=== PATIENT | male | born 1940 | race Caucasian/White ===

== ENCOUNTER → 2017-09-12 | Outpatient (CLI) | payer MEDICARE ==
[2017-09-12 13:59] VITALS: BP 133/54
== END | disposition home or self-care (01) ==
LOC: WHH 11:00
PROVIDERS: ATTEND Podiatrist Foot & Ankle Surgery
DX: I83.023 Varicose veins of left lower extremity with ulcer of ankle (principal); L97.321 Non-pressure chronic ulcer of left ankle limited to breakdown of skin; G62.9 Polyneuropathy, unspecified; M15.9 Polyosteoarthritis, unspecified; M06.9 Rheumatoid arthritis, unspecified; E66.01 Morbid (severe) obesity due to excess calories; Z68.1 Body mass index [BMI] 19.9 or less, adult
CPT/HCPCS: A4450; A4649; G0463

== ENCOUNTER → 2017-09-26 | Outpatient (CLI) | payer MEDICARE ==
[2017-09-27 13:19] VITALS: BP 131/58
== END | disposition home or self-care (01) ==
LOC: WHH 11:05
PROVIDERS: ATTEND Podiatrist Foot & Ankle Surgery
DX: I83.023 Varicose veins of left lower extremity with ulcer of ankle (principal); L97.321 Non-pressure chronic ulcer of left ankle limited to breakdown of skin; G62.9 Polyneuropathy, unspecified; M15.9 Polyosteoarthritis, unspecified; M06.9 Rheumatoid arthritis, unspecified; E66.01 Morbid (severe) obesity due to excess calories; Z68.1 Body mass index [BMI] 19.9 or less, adult
CPT/HCPCS: 11042; A6209

== ENCOUNTER → 2017-10-10 | Outpatient (CLI) | payer MEDICARE ==
[2017-10-10 15:22] VITALS: BP 136/54
== END | disposition home or self-care (01) ==
LOC: WHH 11:00
PROVIDERS: ATTEND Podiatrist Foot & Ankle Surgery
DX: I83.023 Varicose veins of left lower extremity with ulcer of ankle (principal); L97.321 Non-pressure chronic ulcer of left ankle limited to breakdown of skin; I83.015 Varicose veins of right lower extremity with ulcer other part of foot; L97.511 Non-pressure chronic ulcer of other part of right foot limited to breakdown of skin; G62.9 Polyneuropathy, unspecified; M15.9 Polyosteoarthritis, unspecified; M06.9 Rheumatoid arthritis, unspecified; E66.01 Morbid (severe) obesity due to excess calories; Z68.1 Body mass index [BMI] 19.9 or less, adult
CPT/HCPCS: 11042; A6209; A6213

== ENCOUNTER → 2017-10-24 | Outpatient (CLI) | payer MEDICARE ==
[2017-10-24 14:04] VITALS: BP 119/47
== END | disposition home or self-care (01) ==
LOC: WHH 10:55
PROVIDERS: ATTEND Podiatrist Foot & Ankle Surgery
DX: I83.023 Varicose veins of left lower extremity with ulcer of ankle (principal); L97.321 Non-pressure chronic ulcer of left ankle limited to breakdown of skin; I83.015 Varicose veins of right lower extremity with ulcer other part of foot; L97.511 Non-pressure chronic ulcer of other part of right foot limited to breakdown of skin; G62.9 Polyneuropathy, unspecified; M15.9 Polyosteoarthritis, unspecified; M06.9 Rheumatoid arthritis, unspecified; E66.01 Morbid (severe) obesity due to excess calories; Z68.1 Body mass index [BMI] 19.9 or less, adult
CPT/HCPCS: A6209; A6213; G0463

== ENCOUNTER → 2017-11-07 | Outpatient (CLI) | payer MEDICARE ==
[~2017-11-07] MED LIST: LIDOCAINE/PRILOCAINE CREAM 5GM TUBE TP ONE
[2017-11-07 12:50] VITALS: BP 158/89
== END | disposition home or self-care (01) ==
LOC: WHH 10:45
PROVIDERS: ATTEND Podiatrist Foot & Ankle Surgery
DX: I83.023 Varicose veins of left lower extremity with ulcer of ankle (principal); L97.321 Non-pressure chronic ulcer of left ankle limited to breakdown of skin; I83.015 Varicose veins of right lower extremity with ulcer other part of foot; L97.511 Non-pressure chronic ulcer of other part of right foot limited to breakdown of skin; G62.9 Polyneuropathy, unspecified; M15.9 Polyosteoarthritis, unspecified; M06.9 Rheumatoid arthritis, unspecified; E66.01 Morbid (severe) obesity due to excess calories; Z68.1 Body mass index [BMI] 19.9 or less, adult
CPT/HCPCS: 11042; A4450; A6209; J3490

== ENCOUNTER → 2017-11-12 | Outpatient (CLI) | payer MEDICARE | END | disposition home or self-care (01) | LOC: SHCH 12:27 | PROVIDERS: ATTEND Internal Medicine Cardiovascular Disease | DX: I65.23 Occlusion and stenosis of bilateral carotid arteries (principal); I87.2 Venous insufficiency (chronic) (peripheral); I10 Essential (primary) hypertension; I35.0 Nonrheumatic aortic (valve) stenosis; R60.9 Edema, unspecified | CPT/HCPCS: 93306; 93880 ==

== ENCOUNTER → 2017-11-21 | Outpatient (CLI) | payer MEDICARE ==
[2017-11-21 14:41] VITALS: BP 163/68
== END | disposition home or self-care (01) ==
LOC: WHH 11:00
PROVIDERS: ATTEND Podiatrist Foot & Ankle Surgery
DX: I83.023 Varicose veins of left lower extremity with ulcer of ankle (principal); L97.321 Non-pressure chronic ulcer of left ankle limited to breakdown of skin; I83.015 Varicose veins of right lower extremity with ulcer other part of foot; L97.511 Non-pressure chronic ulcer of other part of right foot limited to breakdown of skin; L89.899 Pressure ulcer of other site, unspecified stage; L89.529 Pressure ulcer of left ankle, unspecified stage; I10 Essential (primary) hypertension; E66.01 Morbid (severe) obesity due to excess calories; G62.9 Polyneuropathy, unspecified; M15.9 Polyosteoarthritis, unspecified; M06.9 Rheumatoid arthritis, unspecified; I73.9 Peripheral vascular disease, unspecified; Z68.1 Body mass index [BMI] 19.9 or less, adult
CPT/HCPCS: 11042; A4649; J3490

== ENCOUNTER → 2017-12-05 | Outpatient (CLI) | payer MEDICARE ==
[2017-12-05 14:22] VITALS: BP 131/55
== END | disposition home or self-care (01) ==
LOC: WHH 10:50
PROVIDERS: ATTEND Podiatrist Foot & Ankle Surgery
DX: I83.023 Varicose veins of left lower extremity with ulcer of ankle (principal); L97.321 Non-pressure chronic ulcer of left ankle limited to breakdown of skin; I83.015 Varicose veins of right lower extremity with ulcer other part of foot; L97.511 Non-pressure chronic ulcer of other part of right foot limited to breakdown of skin; L89.899 Pressure ulcer of other site, unspecified stage; L89.529 Pressure ulcer of left ankle, unspecified stage; I10 Essential (primary) hypertension; E66.01 Morbid (severe) obesity due to excess calories; G62.9 Polyneuropathy, unspecified; M15.9 Polyosteoarthritis, unspecified; M06.9 Rheumatoid arthritis, unspecified; I73.9 Peripheral vascular disease, unspecified; Z68.1 Body mass index [BMI] 19.9 or less, adult
CPT/HCPCS: A4450; A4649; G0463

== ENCOUNTER → 2017-12-19 | Outpatient (CLI) | payer MEDICARE ==
[2017-12-19 12:32] VITALS: BP 152/50
== END | disposition home or self-care (01) ==
LOC: WHH 11:00
PROVIDERS: ATTEND Podiatrist Foot & Ankle Surgery
DX: I83.023 Varicose veins of left lower extremity with ulcer of ankle (principal); L97.321 Non-pressure chronic ulcer of left ankle limited to breakdown of skin; I83.015 Varicose veins of right lower extremity with ulcer other part of foot; L97.511 Non-pressure chronic ulcer of other part of right foot limited to breakdown of skin; L89.899 Pressure ulcer of other site, unspecified stage; L89.529 Pressure ulcer of left ankle, unspecified stage; I10 Essential (primary) hypertension; E66.01 Morbid (severe) obesity due to excess calories; G62.9 Polyneuropathy, unspecified; M15.9 Polyosteoarthritis, unspecified; M06.9 Rheumatoid arthritis, unspecified; I73.9 Peripheral vascular disease, unspecified; Z68.1 Body mass index [BMI] 19.9 or less, adult
CPT/HCPCS: A4649; G0463

== ENCOUNTER → 2018-01-02 | Outpatient (CLI) | payer MEDICARE ==
[2018-01-02 14:15] VITALS: BP 148/78
== END | disposition home or self-care (01) ==
LOC: WHH 11:00
PROVIDERS: ATTEND Podiatrist Foot & Ankle Surgery
DX: I83.023 Varicose veins of left lower extremity with ulcer of ankle (principal); L97.321 Non-pressure chronic ulcer of left ankle limited to breakdown of skin; I83.015 Varicose veins of right lower extremity with ulcer other part of foot; L97.511 Non-pressure chronic ulcer of other part of right foot limited to breakdown of skin; L89.899 Pressure ulcer of other site, unspecified stage; L89.529 Pressure ulcer of left ankle, unspecified stage; I10 Essential (primary) hypertension; E66.01 Morbid (severe) obesity due to excess calories; G62.9 Polyneuropathy, unspecified; M15.9 Polyosteoarthritis, unspecified; M06.9 Rheumatoid arthritis, unspecified; I73.9 Peripheral vascular disease, unspecified; Z68.1 Body mass index [BMI] 19.9 or less, adult
CPT/HCPCS: A4450; A4649; G0463

== ENCOUNTER → 2018-01-16 | Outpatient (CLI) | payer MEDICARE ==
[~2018-01-16] MED LIST changes: -LIDOCAINE/PRILOCAINE CREAM 5GM TUBE TP ONE; +SILVER NITRATE APPLICATOR 1 SWAB TP ONE
[2018-01-16 14:30] VITALS: BP 140/78
== END | disposition home or self-care (01) ==
LOC: WHH 11:00
PROVIDERS: ATTEND Podiatrist Foot & Ankle Surgery
DX: I83.015 Varicose veins of right lower extremity with ulcer other part of foot (principal); L97.511 Non-pressure chronic ulcer of other part of right foot limited to breakdown of skin; I10 Essential (primary) hypertension; E66.01 Morbid (severe) obesity due to excess calories; I73.9 Peripheral vascular disease, unspecified; G62.9 Polyneuropathy, unspecified; M15.9 Polyosteoarthritis, unspecified; M06.9 Rheumatoid arthritis, unspecified; Z68.1 Body mass index [BMI] 19.9 or less, adult
CPT/HCPCS: 11042; A4649

== ENCOUNTER → 2018-01-30 | Outpatient (CLI) | payer MEDICARE ==
[2018-01-30 14:20] VITALS: BP 119/59
== END | disposition home or self-care (01) ==
LOC: WHH 11:00
PROVIDERS: ATTEND Podiatrist Foot & Ankle Surgery
DX: I83.015 Varicose veins of right lower extremity with ulcer other part of foot (principal); L97.511 Non-pressure chronic ulcer of other part of right foot limited to breakdown of skin; G82.20 Paraplegia, unspecified; I10 Essential (primary) hypertension; E66.01 Morbid (severe) obesity due to excess calories; I73.9 Peripheral vascular disease, unspecified; G62.9 Polyneuropathy, unspecified; M15.9 Polyosteoarthritis, unspecified; M06.9 Rheumatoid arthritis, unspecified; Z68.1 Body mass index [BMI] 19.9 or less, adult
CPT/HCPCS: 17250; A4649; G0463

== ENCOUNTER → 2018-02-13 | Outpatient (CLI) | payer MEDICARE ==
[2018-02-13 14:31] VITALS: BP 164/67
== END | disposition home or self-care (01) ==
LOC: WHH 11:00
PROVIDERS: ATTEND Podiatrist Foot & Ankle Surgery
DX: I83.015 Varicose veins of right lower extremity with ulcer other part of foot (principal); L97.511 Non-pressure chronic ulcer of other part of right foot limited to breakdown of skin; G82.20 Paraplegia, unspecified; I10 Essential (primary) hypertension; E66.01 Morbid (severe) obesity due to excess calories; I73.9 Peripheral vascular disease, unspecified; G62.9 Polyneuropathy, unspecified; M15.9 Polyosteoarthritis, unspecified; M06.9 Rheumatoid arthritis, unspecified; Z68.1 Body mass index [BMI] 19.9 or less, adult
CPT/HCPCS: 97597; A4649

== ENCOUNTER → 2018-02-27 | Outpatient (CLI) | payer MEDICARE ==
[2018-02-27 17:10] VITALS: BP 165/60
== END | disposition home or self-care (01) ==
LOC: WHH 11:00
PROVIDERS: ATTEND Podiatrist Foot & Ankle Surgery
DX: I83.015 Varicose veins of right lower extremity with ulcer other part of foot (principal); L97.511 Non-pressure chronic ulcer of other part of right foot limited to breakdown of skin; L89.890 Pressure ulcer of other site, unstageable; G82.20 Paraplegia, unspecified; I10 Essential (primary) hypertension; E66.01 Morbid (severe) obesity due to excess calories; I73.9 Peripheral vascular disease, unspecified; G62.9 Polyneuropathy, unspecified; M15.9 Polyosteoarthritis, unspecified; M06.9 Rheumatoid arthritis, unspecified; Z68.1 Body mass index [BMI] 19.9 or less, adult
CPT/HCPCS: A6209; G0463

== ENCOUNTER 2018-05-29 10:59 | Outpatient (CLI) | payer MEDICARE ==
[2018-05-29 13:54] VITALS: BP 166/94
== END 2018-05-29 16:01 | disposition home or self-care (01) ==
LOC: WHH 10:59
PROVIDERS: ATTEND Podiatrist Foot & Ankle Surgery
DX: I83.015 Varicose veins of right lower extremity with ulcer other part of foot (principal); L97.518 Non-pressure chronic ulcer of other part of right foot with other specified severity; I10 Essential (primary) hypertension; E66.01 Morbid (severe) obesity due to excess calories; G82.20 Paraplegia, unspecified; I73.9 Peripheral vascular disease, unspecified; G62.9 Polyneuropathy, unspecified; M15.9 Polyosteoarthritis, unspecified; M06.9 Rheumatoid arthritis, unspecified; Z68.1 Body mass index [BMI] 19.9 or less, adult
CPT/HCPCS: G0463

== ENCOUNTER → 2018-07-03 | Outpatient (CLI) | payer MEDICARE ==
[~2018-07-03] MED LIST changes: +LIDOCAINE/PRILOCAINE CREAM 5GM TUBE TP ONE; -SILVER NITRATE APPLICATOR 1 SWAB TP ONE
[2018-07-03 12:40] VITALS: BP 143/49
== END | disposition home or self-care (01) ==
LOC: WHH 08:37
PROVIDERS: ATTEND Podiatrist Foot & Ankle Surgery
DX: L89.522 Pressure ulcer of left ankle, stage 2 (principal); I10 Essential (primary) hypertension; E66.01 Morbid (severe) obesity due to excess calories; G82.20 Paraplegia, unspecified; I73.9 Peripheral vascular disease, unspecified; G62.9 Polyneuropathy, unspecified; M15.9 Polyosteoarthritis, unspecified; M06.9 Rheumatoid arthritis, unspecified; Z68.1 Body mass index [BMI] 19.9 or less, adult
CPT/HCPCS: 11042; A4450; A6207; J3490

== ENCOUNTER → 2018-07-17 | Outpatient (CLI) | payer MEDICARE ==
[2018-07-17 13:28] VITALS: BP 141/79
== END | disposition home or self-care (01) ==
LOC: WHH 11:00
PROVIDERS: ATTEND Podiatrist Foot & Ankle Surgery
DX: L89.522 Pressure ulcer of left ankle, stage 2 (principal); I10 Essential (primary) hypertension; E66.01 Morbid (severe) obesity due to excess calories; G82.20 Paraplegia, unspecified; I73.9 Peripheral vascular disease, unspecified; G62.9 Polyneuropathy, unspecified; M15.9 Polyosteoarthritis, unspecified; M06.9 Rheumatoid arthritis, unspecified; Z68.1 Body mass index [BMI] 19.9 or less, adult
CPT/HCPCS: 11042; A6207

== ENCOUNTER → 2018-07-18 | Outpatient (CLI) | payer MEDICARE ==
[2018-07-18 13:44] VITALS: BP 136/65
== END | disposition home or self-care (01) ==
LOC: WHH 10:45
PROVIDERS: ATTEND Surgery
DX: S61.432A Puncture wound without foreign body of left hand, initial encounter (principal); M45.9 Ankylosing spondylitis of unspecified sites in spine; I10 Essential (primary) hypertension; F44.4 Conversion disorder with motor symptom or deficit; E66.01 Morbid (severe) obesity due to excess calories; I73.9 Peripheral vascular disease, unspecified; G62.9 Polyneuropathy, unspecified; M15.9 Polyosteoarthritis, unspecified; M06.9 Rheumatoid arthritis, unspecified; Z68.1 Body mass index [BMI] 19.9 or less, adult; X58.XXXA Exposure to other specified factors, initial encounter; Y93.89 Activity, other specified; Y92.89 Other specified places as the place of occurrence of the external cause; Y99.8 Other external cause status
CPT/HCPCS: 11042; 87070; 87077; 87186

== ENCOUNTER → 2018-07-23 | Outpatient (CLI) | payer MEDICARE | END | disposition home or self-care (01) | LOC: SHCH 09:41 | PROVIDERS: ATTEND Internal Medicine Cardiovascular Disease | DX: I08.0 Rheumatic disorders of both mitral and aortic valves (principal) | CPT/HCPCS: 93306 ==

== ENCOUNTER → 2018-07-31 | Outpatient (CLI) | payer MEDICARE ==
[2018-07-31 13:34] VITALS: BP 187/55
== END | disposition home or self-care (01) ==
LOC: WHH 10:50
PROVIDERS: ATTEND Podiatrist Foot & Ankle Surgery
DX: L89.522 Pressure ulcer of left ankle, stage 2 (principal); I10 Essential (primary) hypertension; E66.01 Morbid (severe) obesity due to excess calories; I73.9 Peripheral vascular disease, unspecified; G62.9 Polyneuropathy, unspecified; M15.9 Polyosteoarthritis, unspecified; M06.9 Rheumatoid arthritis, unspecified; G82.20 Paraplegia, unspecified; Z68.1 Body mass index [BMI] 19.9 or less, adult
CPT/HCPCS: 11042; A4649

== ENCOUNTER → 2018-08-01 | Outpatient (CLI) | payer MEDICARE ==
[2018-08-01 14:05] VITALS: BP 156/68
== END | disposition home or self-care (01) ==
LOC: WHH 10:59
PROVIDERS: ATTEND Surgery
DX: S61.432D Puncture wound without foreign body of left hand, subsequent encounter (principal); I10 Essential (primary) hypertension; F44.4 Conversion disorder with motor symptom or deficit; E66.01 Morbid (severe) obesity due to excess calories; I73.9 Peripheral vascular disease, unspecified; G62.9 Polyneuropathy, unspecified; M15.9 Polyosteoarthritis, unspecified; M06.9 Rheumatoid arthritis, unspecified; Z68.1 Body mass index [BMI] 19.9 or less, adult; X58.XXXD Exposure to other specified factors, subsequent encounter
CPT/HCPCS: 11042; A6021; 97597

== ENCOUNTER → 2018-08-14 | Outpatient (CLI) | payer MEDICARE ==
[2018-08-14 13:25] VITALS: BP 139/65
== END | disposition home or self-care (01) ==
LOC: WHH 10:45
PROVIDERS: ATTEND Podiatrist Foot & Ankle Surgery
DX: L89.522 Pressure ulcer of left ankle, stage 2 (principal); I10 Essential (primary) hypertension; E66.01 Morbid (severe) obesity due to excess calories; I73.9 Peripheral vascular disease, unspecified; G62.9 Polyneuropathy, unspecified; M15.9 Polyosteoarthritis, unspecified; M06.9 Rheumatoid arthritis, unspecified; G82.20 Paraplegia, unspecified; Z68.1 Body mass index [BMI] 19.9 or less, adult
CPT/HCPCS: 11042; A4649

== ENCOUNTER → 2018-08-28 | Outpatient (CLI) | payer MEDICARE ==
[2018-08-28 13:30] VITALS: BP 148/85
== END | disposition home or self-care (01) ==
LOC: WHH 10:45
PROVIDERS: ATTEND Podiatrist Foot & Ankle Surgery
DX: L89.522 Pressure ulcer of left ankle, stage 2 (principal); R06.9 Unspecified abnormalities of breathing; I10 Essential (primary) hypertension; E66.01 Morbid (severe) obesity due to excess calories; G82.20 Paraplegia, unspecified; I73.9 Peripheral vascular disease, unspecified; G62.9 Polyneuropathy, unspecified; Z68.1 Body mass index [BMI] 19.9 or less, adult
CPT/HCPCS: 11042; A4649

== ENCOUNTER → 2018-09-18 | Outpatient (CLI) | payer MEDICARE ==
[2018-09-18 13:17] VITALS: BP 144/60
== END | disposition home or self-care (01) ==
LOC: WHH 11:00
PROVIDERS: ATTEND Podiatrist Foot & Ankle Surgery
DX: L89.522 Pressure ulcer of left ankle, stage 2 (principal); I10 Essential (primary) hypertension; E66.01 Morbid (severe) obesity due to excess calories; G82.20 Paraplegia, unspecified; I73.9 Peripheral vascular disease, unspecified; G62.9 Polyneuropathy, unspecified; M15.9 Polyosteoarthritis, unspecified; M06.9 Rheumatoid arthritis, unspecified; Z68.1 Body mass index [BMI] 19.9 or less, adult
CPT/HCPCS: A4649; G0463

== ENCOUNTER → 2018-10-02 | Outpatient (CLI) | payer MEDICARE ==
[2018-10-02 11:34] VITALS: BP 157/56
== END | disposition home or self-care (01) ==
LOC: WHH 11:00
PROVIDERS: ATTEND Podiatrist Foot & Ankle Surgery
DX: L89.522 Pressure ulcer of left ankle, stage 2 (principal); I87.2 Venous insufficiency (chronic) (peripheral); I10 Essential (primary) hypertension; E66.01 Morbid (severe) obesity due to excess calories; G82.20 Paraplegia, unspecified; I73.9 Peripheral vascular disease, unspecified; G62.9 Polyneuropathy, unspecified; M15.9 Polyosteoarthritis, unspecified; M06.9 Rheumatoid arthritis, unspecified; Z68.1 Body mass index [BMI] 19.9 or less, adult
CPT/HCPCS: 11042

== ENCOUNTER → 2018-10-09 | Outpatient (CLI) | payer MEDICARE ==
[2018-10-09 14:32] VITALS: BP 130/66
== END | disposition home or self-care (01) ==
LOC: WHH 11:00
PROVIDERS: ATTEND Podiatrist Foot & Ankle Surgery
DX: L89.522 Pressure ulcer of left ankle, stage 2 (principal); I10 Essential (primary) hypertension; G82.20 Paraplegia, unspecified; I73.9 Peripheral vascular disease, unspecified; G62.9 Polyneuropathy, unspecified; M15.9 Polyosteoarthritis, unspecified; M06.9 Rheumatoid arthritis, unspecified; I87.2 Venous insufficiency (chronic) (peripheral); E66.01 Morbid (severe) obesity due to excess calories; Z68.1 Body mass index [BMI] 19.9 or less, adult
CPT/HCPCS: 11042

== ENCOUNTER → 2018-10-23 | Outpatient (CLI) | payer MEDICARE ==
[2018-10-23 13:10] VITALS: BP 135/57
== END | disposition home or self-care (01) ==
LOC: WHH 11:00
PROVIDERS: ATTEND Podiatrist Foot & Ankle Surgery
DX: L89.522 Pressure ulcer of left ankle, stage 2 (principal); I10 Essential (primary) hypertension; G82.20 Paraplegia, unspecified; E66.01 Morbid (severe) obesity due to excess calories; I87.2 Venous insufficiency (chronic) (peripheral); I73.9 Peripheral vascular disease, unspecified; G62.9 Polyneuropathy, unspecified; M06.9 Rheumatoid arthritis, unspecified; M15.9 Polyosteoarthritis, unspecified
CPT/HCPCS: 11042; 87070; 87077; 87186

== ENCOUNTER → 2018-10-30 | Outpatient (CLI) | payer MEDICARE ==
[2018-10-30 11:52] VITALS: BP 156/53
== END | disposition home or self-care (01) ==
LOC: WHH 10:20
PROVIDERS: ATTEND Podiatrist Foot & Ankle Surgery
DX: L89.522 Pressure ulcer of left ankle, stage 2 (principal); L89.892 Pressure ulcer of other site, stage 2; I10 Essential (primary) hypertension; I73.9 Peripheral vascular disease, unspecified; I87.2 Venous insufficiency (chronic) (peripheral); G62.9 Polyneuropathy, unspecified; M15.9 Polyosteoarthritis, unspecified; G82.20 Paraplegia, unspecified; E66.01 Morbid (severe) obesity due to excess calories; M06.9 Rheumatoid arthritis, unspecified
CPT/HCPCS: A4649; G0463

== ENCOUNTER → 2018-11-13 | Outpatient (CLI) | payer MEDICARE ==
[2018-11-13 13:55] VITALS: BP 111/48
== END | disposition home or self-care (01) ==
LOC: WHH 11:00
PROVIDERS: ATTEND Podiatrist Foot & Ankle Surgery
DX: L89.522 Pressure ulcer of left ankle, stage 2 (principal); I87.2 Venous insufficiency (chronic) (peripheral); I10 Essential (primary) hypertension; I73.9 Peripheral vascular disease, unspecified; G82.20 Paraplegia, unspecified; G62.9 Polyneuropathy, unspecified; E66.01 Morbid (severe) obesity due to excess calories; M15.9 Polyosteoarthritis, unspecified; M06.9 Rheumatoid arthritis, unspecified
CPT/HCPCS: 11042; A4649

== ENCOUNTER → 2018-11-27 | Outpatient (CLI) | payer MEDICARE ==
[2018-11-27 12:16] VITALS: BP 128/83
== END | disposition home or self-care (01) ==
LOC: WHH 10:50
PROVIDERS: ATTEND Podiatrist Foot & Ankle Surgery
DX: L89.522 Pressure ulcer of left ankle, stage 2 (principal); I10 Essential (primary) hypertension; I87.2 Venous insufficiency (chronic) (peripheral); I73.9 Peripheral vascular disease, unspecified; E66.01 Morbid (severe) obesity due to excess calories; G82.20 Paraplegia, unspecified; G62.9 Polyneuropathy, unspecified; M06.9 Rheumatoid arthritis, unspecified; M15.9 Polyosteoarthritis, unspecified
CPT/HCPCS: 29580; A6207; A6210; A6456; G0463

== ENCOUNTER → 2018-12-04 | Outpatient (CLI) | payer MEDICARE ==
[2018-12-04 13:47] VITALS: BP 159/52
== END | disposition home or self-care (01) ==
LOC: WHH 11:00
PROVIDERS: ATTEND Podiatrist Foot & Ankle Surgery
DX: L89.522 Pressure ulcer of left ankle, stage 2 (principal); I10 Essential (primary) hypertension; I73.9 Peripheral vascular disease, unspecified; I87.2 Venous insufficiency (chronic) (peripheral); E66.01 Morbid (severe) obesity due to excess calories; G82.20 Paraplegia, unspecified; G62.9 Polyneuropathy, unspecified; M06.9 Rheumatoid arthritis, unspecified; M15.9 Polyosteoarthritis, unspecified
CPT/HCPCS: 29580; A6197; A6207; A6456; G0463

== ENCOUNTER → 2018-12-11 | Outpatient (CLI) | payer MEDICARE ==
[2018-12-11 13:33] VITALS: BP 122/64
== END | disposition home or self-care (01) ==
LOC: WHH 11:00
PROVIDERS: ATTEND Podiatrist Foot & Ankle Surgery
DX: L89.522 Pressure ulcer of left ankle, stage 2 (principal); I10 Essential (primary) hypertension; I73.9 Peripheral vascular disease, unspecified; I87.2 Venous insufficiency (chronic) (peripheral); I87.8 Other specified disorders of veins; E66.01 Morbid (severe) obesity due to excess calories; G62.9 Polyneuropathy, unspecified; M15.9 Polyosteoarthritis, unspecified; M06.9 Rheumatoid arthritis, unspecified; G82.20 Paraplegia, unspecified; Z99.3 Dependence on wheelchair
CPT/HCPCS: 11042; A6207; A6456

== ENCOUNTER → 2018-12-25 | Outpatient (CLI) | payer MEDICARE ==
[2018-12-25 14:31] VITALS: BP 144/66
== END | disposition home or self-care (01) ==
LOC: WHH 11:00
PROVIDERS: ATTEND Podiatrist Foot & Ankle Surgery
DX: L89.523 Pressure ulcer of left ankle, stage 3 (principal); I10 Essential (primary) hypertension; I87.2 Venous insufficiency (chronic) (peripheral); G60.9 Hereditary and idiopathic neuropathy, unspecified; E66.01 Morbid (severe) obesity due to excess calories; G82.20 Paraplegia, unspecified; I73.9 Peripheral vascular disease, unspecified; M15.9 Polyosteoarthritis, unspecified; M06.9 Rheumatoid arthritis, unspecified; Z99.3 Dependence on wheelchair
CPT/HCPCS: 11042; A6209; A6456; 29580

== ENCOUNTER → 2019-01-08 | Outpatient (CLI) | payer MEDICARE ==
[2019-01-08 14:20] VITALS: BP 147/56
== END | disposition home or self-care (01) ==
LOC: WHH 11:00
PROVIDERS: ATTEND Podiatrist Foot & Ankle Surgery
DX: L89.522 Pressure ulcer of left ankle, stage 2 (principal); I87.2 Venous insufficiency (chronic) (peripheral); I10 Essential (primary) hypertension; I73.9 Peripheral vascular disease, unspecified; E66.01 Morbid (severe) obesity due to excess calories; G62.9 Polyneuropathy, unspecified; G82.20 Paraplegia, unspecified; M06.9 Rheumatoid arthritis, unspecified; M15.9 Polyosteoarthritis, unspecified; M79.9 Soft tissue disorder, unspecified; Z99.3 Dependence on wheelchair
CPT/HCPCS: 11042; A6021; A6450

== ENCOUNTER → 2019-01-22 | Outpatient (CLI) | payer MEDICARE ==
[2019-01-22 14:09] VITALS: BP 139/80
== END | disposition home or self-care (01) ==
LOC: WHH 11:00
PROVIDERS: ATTEND Podiatrist Foot & Ankle Surgery
DX: I83.023 Varicose veins of left lower extremity with ulcer of ankle (principal); L89.522 Pressure ulcer of left ankle, stage 2; I87.2 Venous insufficiency (chronic) (peripheral); I10 Essential (primary) hypertension; I73.9 Peripheral vascular disease, unspecified; E66.01 Morbid (severe) obesity due to excess calories; G62.9 Polyneuropathy, unspecified; G82.20 Paraplegia, unspecified; M06.9 Rheumatoid arthritis, unspecified; M15.9 Polyosteoarthritis, unspecified; M79.9 Soft tissue disorder, unspecified; Z99.3 Dependence on wheelchair
CPT/HCPCS: 11042; A6209; A6450

== ENCOUNTER → 2019-02-05 | Outpatient (CLI) | payer MEDICARE ==
[2019-02-05 14:39] VITALS: BP 160/73
== END | disposition home or self-care (01) ==
LOC: WHH 11:00
PROVIDERS: ATTEND Podiatrist Foot & Ankle Surgery
DX: I83.023 Varicose veins of left lower extremity with ulcer of ankle (principal); L89.522 Pressure ulcer of left ankle, stage 2; L97.321 Non-pressure chronic ulcer of left ankle limited to breakdown of skin; I87.2 Venous insufficiency (chronic) (peripheral); I10 Essential (primary) hypertension; I73.9 Peripheral vascular disease, unspecified; E66.01 Morbid (severe) obesity due to excess calories; G62.9 Polyneuropathy, unspecified; G82.20 Paraplegia, unspecified; M06.9 Rheumatoid arthritis, unspecified; M15.9 Polyosteoarthritis, unspecified; M79.9 Soft tissue disorder, unspecified; Z99.3 Dependence on wheelchair
CPT/HCPCS: A6207; G0463

== ENCOUNTER → 2019-02-19 | Outpatient (CLI) | payer MEDICARE ==
[2019-02-19 13:37] VITALS: BP 146/38
== END | disposition home or self-care (01) ==
LOC: WHH 11:00
PROVIDERS: ATTEND Podiatrist Foot & Ankle Surgery
DX: I83.023 Varicose veins of left lower extremity with ulcer of ankle (principal); L89.522 Pressure ulcer of left ankle, stage 2; L97.321 Non-pressure chronic ulcer of left ankle limited to breakdown of skin; I87.2 Venous insufficiency (chronic) (peripheral); I10 Essential (primary) hypertension; E66.01 Morbid (severe) obesity due to excess calories; G82.20 Paraplegia, unspecified; M06.9 Rheumatoid arthritis, unspecified; G62.9 Polyneuropathy, unspecified; Z99.3 Dependence on wheelchair
CPT/HCPCS: A6207; G0463

== ENCOUNTER → 2019-03-04 | Outpatient (CLI) | payer MEDICARE | END | disposition home or self-care (01) | LOC: SHCH 10:37 | PROVIDERS: ATTEND Internal Medicine Cardiovascular Disease | DX: I11.9 Hypertensive heart disease without heart failure (principal); I08.0 Rheumatic disorders of both mitral and aortic valves; I65.23 Occlusion and stenosis of bilateral carotid arteries; I25.10 Atherosclerotic heart disease of native coronary artery without angina pectoris | CPT/HCPCS: 93306; 93880 ==

== ENCOUNTER → 2019-04-02 | Outpatient (CLI) | payer MEDICARE ==
[2019-04-02 13:01] VITALS: BP 159/64
== END | disposition home or self-care (01) ==
LOC: WHH 11:00
PROVIDERS: ATTEND Podiatrist Foot & Ankle Surgery
DX: I83.023 Varicose veins of left lower extremity with ulcer of ankle (principal); L89.522 Pressure ulcer of left ankle, stage 2; L97.322 Non-pressure chronic ulcer of left ankle with fat layer exposed; I87.2 Venous insufficiency (chronic) (peripheral); I11.9 Hypertensive heart disease without heart failure; I25.10 Atherosclerotic heart disease of native coronary artery without angina pectoris; E66.01 Morbid (severe) obesity due to excess calories; G82.20 Paraplegia, unspecified; G62.9 Polyneuropathy, unspecified; M06.9 Rheumatoid arthritis, unspecified; M15.9 Polyosteoarthritis, unspecified; M79.9 Soft tissue disorder, unspecified; Z99.3 Dependence on wheelchair
CPT/HCPCS: 11042; A6207; A6250

== ENCOUNTER → 2019-04-16 | Outpatient (CLI) | payer MEDICARE ==
[2019-04-16 14:13] VITALS: BP 125/50
== END | disposition home or self-care (01) ==
LOC: WHH 11:15
PROVIDERS: ATTEND Podiatrist Foot & Ankle Surgery
DX: I83.023 Varicose veins of left lower extremity with ulcer of ankle (principal); L89.522 Pressure ulcer of left ankle, stage 2; L97.322 Non-pressure chronic ulcer of left ankle with fat layer exposed; I87.2 Venous insufficiency (chronic) (peripheral); I11.9 Hypertensive heart disease without heart failure; I25.10 Atherosclerotic heart disease of native coronary artery without angina pectoris; E66.01 Morbid (severe) obesity due to excess calories; G82.20 Paraplegia, unspecified; G62.9 Polyneuropathy, unspecified; M06.9 Rheumatoid arthritis, unspecified; M15.9 Polyosteoarthritis, unspecified; M79.9 Soft tissue disorder, unspecified; Z99.3 Dependence on wheelchair
CPT/HCPCS: 11042; A6207

== ENCOUNTER → 2019-05-07 | Outpatient (CLI) | payer MEDICARE ==
[2019-05-07 13:50] VITALS: BP 132/51
== END | disposition home or self-care (01) ==
LOC: WHH 11:00
PROVIDERS: ATTEND Podiatrist Foot & Ankle Surgery
DX: I83.023 Varicose veins of left lower extremity with ulcer of ankle (principal); L89.522 Pressure ulcer of left ankle, stage 2; I11.9 Hypertensive heart disease without heart failure; I25.10 Atherosclerotic heart disease of native coronary artery without angina pectoris; I87.2 Venous insufficiency (chronic) (peripheral); E78.5 Hyperlipidemia, unspecified; E66.01 Morbid (severe) obesity due to excess calories; G82.20 Paraplegia, unspecified; G62.9 Polyneuropathy, unspecified; M15.9 Polyosteoarthritis, unspecified; M06.9 Rheumatoid arthritis, unspecified; M79.9 Soft tissue disorder, unspecified; Z99.3 Dependence on wheelchair
CPT/HCPCS: A6207; G0463

== ENCOUNTER 2019-05-28 10:55 | Outpatient (CLI) | payer MEDICARE ==
[2019-05-28 14:03] VITALS: BP 143/58
== END 2019-05-28 17:00 | disposition home or self-care (01) ==
LOC: WHH 10:55
PROVIDERS: ATTEND Podiatrist Foot & Ankle Surgery
DX: I83.023 Varicose veins of left lower extremity with ulcer of ankle (principal); L89.522 Pressure ulcer of left ankle, stage 2; I11.9 Hypertensive heart disease without heart failure; I25.10 Atherosclerotic heart disease of native coronary artery without angina pectoris; I87.2 Venous insufficiency (chronic) (peripheral); E78.5 Hyperlipidemia, unspecified; G62.9 Polyneuropathy, unspecified; G20 Parkinson's disease; F32.9 Major depressive disorder, single episode, unspecified; M06.9 Rheumatoid arthritis, unspecified; M13.0 Polyarthritis, unspecified; M79.9 Soft tissue disorder, unspecified; Z99.3 Dependence on wheelchair
CPT/HCPCS: G0463

== ENCOUNTER → 2019-10-24 | Outpatient (CLI) | payer MEDICARE | END | disposition home or self-care (01) | LOC: SHCH 11:20 | PROVIDERS: ATTEND Internal Medicine Cardiovascular Disease | DX: I08.0 Rheumatic disorders of both mitral and aortic valves (principal); R01.1 Cardiac murmur, unspecified | CPT/HCPCS: 93306 ==

== ENCOUNTER 2020-08-03 07:32 | Day surgery (SDC) | payer MEDICARE ==
[2020-07-28 10:26] LABS: BASOPHILS % (AUTO) 0.9 % (0.0-5.0); EOSINOPHILS % (AUTO) 2.8 % (0.0-8.0); LYMPHOCYTES % (AUTO) 12.5 % (21.0-51.0); MEAN CORPUSCULAR HGB CONC 31.4 g/dL (32.0-36.0); MEAN CORPUSCULAR VOLUME 95.4 fL (79-99); MONOCYTES % (AUTO) 9.4 % (3.0-13.0); NEUTROPHILS % (AUTO) 73.7 % (40.0-77.0); PLATELET COUNT (AUTO) 292 K/uL (130-400); RED BLOOD CELL COUNT(AUTO) 3.67 MIL/uL (4.50-6.20); RED CELL DISTRIBUTION WIDTH 15.4 % (11.0-15.5); WHITE BLOOD COUNT (AUTO) 7.6 K/uL (4.8-10.8)
[2020-07-28 10:32] LABS: APPEARANCE,URINE Clear (CLEAR); BILIRUBIN,URINE Negative (NEGATIVE); COLOR,URINE Yellow (YELLOW); GLUCOSE, URINE (UA) Negative (NEGATIVE); KETONES,URINE Negative (NEGATIVE); LEUKOCYTE ESTERASE ,URINE Negative (NEGATIVE); NITRATE,URINE Negative (NEGATIVE); OCCULT BLOOD,URINE Small (NEGATIVE); PROTEIN,URINE POS 1+ mg/dL (NEGATIVE); UROBILINOGEN,URINE 0.2 mg/dL (0.2-1.0)
[2020-07-28 10:35] LABS: CREATININE 1.4 mg/dL (0.5-1.5); POTASSIUM 3.4 mmol/L (3.5-5.1)
[2020-07-28 10:41] LABS: INR 0.95 (0.85-1.15); PARTIAL THROMBOPLASTIN TIME 29.3 SEC (26.3-35.5); PROTHROMBIN TIME 10.3 SEC (9.6-11.6)
[2020-07-28 10:43] LABS: BACTERIA,URINE Rare /HPF (None Seen); RBC,URINE 0-1 /HPF (0-1); WBC,URINE 0-1 /HPF (0-1)
[2020-07-28 10:44] LABS: SQUAMOUS EPITHELIAL CELL,UR 0-2 /HPF (0-2)
--- NOTE | 2020-08-02 15:21 | NUR ---
Spoke to Paulino FAY and advised him that patient reported left ankle wound that is open and draining, and patient takes antibiotics for fdc wound, okay to proceed, no new orders. Reported potassium 3.4, and social work supervisor of 1.4, no new orders.
[~2020-08-03] VITALS: Ht 177.8 cm; Wt 122.5 kg
[2020-08-03] VITALS (13 sets, daily range): BP systolic 139–179; BP diastolic 54–84
[~2020-08-03 07:32] MED LIST changes: +AMLO-257 PO; +AMOX500C2 PO; +ASCO100031 PO; +ATOR20TA65 PO; +DIPYRIDAMOLE PO; +ESCI20TA36 PO; +FEXO-58 PO; +FURO20TA4 PO; +HYDR25TA PO; +LABE200T5 PO; -LIDOCAINE/PRILOCAINE CREAM 5GM TUBE TP ONE; +MULT-1367 PO; +SULF500T8 PO; +TRAM50TA4 PO; +[UNRECOGNIZED DRUG - OTHER] PO; +calcium mag zinc PO; +neuriva PO
[2020-08-03] MEDS ORDERED: SODIUM CHLORIDE 0.9% 1000ML 1,000 ML IV ONE (09:40)
[2020-08-03] MEDS: SODIUM CHLORIDE 0.9% 1000ML 1,000 ML IV SCH ×2 (10:30→10:56)
[2020-08-03] MEDS ORDERED: HEPARIN SODIUM 1000UNIT/ML 10ML VIAL ONE (11:55)
[2020-08-03] MEDS ORDERED: SODIUM BICARB 50MEQ 50ML VIAL 50 ML ONE (11:55)
[2020-08-03] MEDS ORDERED: LIDOCAINE HCL 2% 20ML ONE (11:55)
[2020-08-03] MEDS ORDERED: IOHEXOL 350 MG/ML 100ML INFUS..BTL IV ONE (11:55)
[2020-08-03] MEDS ORDERED: IOHEXOL-350 50ML VIAL IV ONE (11:55)
[2020-08-03] MEDS ORDERED: NITROGLYCERIN 2 MG/VIAL VIAL IV ONE (11:55)
[2020-08-03] MEDS ORDERED: MEPERIDINE-PF 25 MG/ML SYG ONE ×3 (11:55→13:11)
[2020-08-03] MEDS ORDERED: MIDAZOLAM HCL 1 MG/ML 2ML VIAL ONE ×3 (11:55→13:11)
[2020-08-03] MEDS ORDERED: LABETALOL HCL 5 MG/ML 20ML VIAL IV ONE (13:17)
[2020-08-03] MEDS ORDERED: SODIUM CHLORIDE 0.9% 1000ML 1,000 ML IV SCH (14:00)
--- NOTE | 2020-08-03 14:05 | NUR ---
Pt arrived back to room following medical lab assistant procedure. Pt encouraged to take deep breaths but still desating to 88, 2 L of 02 applied via nasal cannula and sats quickly improved to 97%.
--- NOTE | 2020-08-03 20:15 | NUR ---
Pt discharged home, tolerating fluids/solids, transferred self from bed to motorized scooter (at baseline), denies any severe pain or nausea. Dressing to right groin remains dry, clean and intact, site soft, non-tender. Pt and spouse instructed in routine and emergency care of femoral catheter site. Pt and spouse deny any further questions.
== END 2020-08-03 20:15 | disposition home or self-care (01) ==
LOC: DAH 07:32
PROVIDERS: ATTEND Internal Medicine Cardiovascular Disease
DX: I35.0 Nonrheumatic aortic (valve) stenosis (principal); I87.2 Venous insufficiency (chronic) (peripheral); I25.10 Atherosclerotic heart disease of native coronary artery without angina pectoris; I12.9 Hypertensive chronic kidney disease with stage 1 through stage 4 chronic kidney disease, or unspecified chronic kidney disease; N18.30 Chronic kidney disease, stage 3 unspecified; E78.5 Hyperlipidemia, unspecified; F17.210 Nicotine dependence, cigarettes, uncomplicated; E66.9 Obesity, unspecified; E86.0 Dehydration; K21.9 Gastro-esophageal reflux disease without esophagitis; M54.12 Radiculopathy, cervical region; M54.17 Radiculopathy, lumbosacral region; Z79.01 Long term (current) use of anticoagulants; Z79.899 Other long term (current) drug therapy
CPT/HCPCS: 36415; 71045; 80048; 81001; 85025; 85610; 85730; 93005; 93460; 96360; A4215; A4216; A4221; A4222; A4223 ×3; A4606; A4663; C1760; C1769 ×3; C1893 ×2; C1894 ×3; J1644; J2175 ×3; J2250 ×3; J3490 ×4; J7030; Q9965; Q9967 ×2; 99156; 99157

== ENCOUNTER → 2020-09-07 | Outpatient (CLI) | payer MEDICARE ==
[~2020-09-07] MED LIST changes: +IOHEXOL-350 50ML VIAL IV ONE; +IOHEXOL-350 75 ML VIAL IV ONE
== END | disposition home or self-care (01) ==
LOC: RAH 09:54
PROVIDERS: ATTEND Internal Medicine Cardiovascular Disease
DX: I35.0 Nonrheumatic aortic (valve) stenosis (principal); I35.8 Other nonrheumatic aortic valve disorders
CPT/HCPCS: 74174; 75574; Q9967 ×2

== ENCOUNTER 2020-09-24 12:57 | Inpatient (IN) | payer MEDICARE ==
[~2020-09-24] VITALS: Ht 177.8 cm; Wt 125.6 kg
[~2020-09-24 12:57] MED LIST changes: -ESCI20TA36 PO; +ESCI20TA38 PO; -IOHEXOL-350 50ML VIAL IV ONE; -IOHEXOL-350 75 ML VIAL IV ONE
[2020-09-24 13:30] LABS: BASOPHILS % (AUTO) 0.3 % (0.0-5.0); EOSINOPHILS % (AUTO) 0.2 % (0.0-8.0); HEMATOCRIT 24.4 % (42-54); LYMPHOCYTES % (AUTO) 5.6 % (21.0-51.0); MEAN CORPUSCULAR HGB CONC 32.8 g/dL (32.0-36.0); MEAN CORPUSCULAR VOLUME 94.6 fL (79-99); MONOCYTES % (AUTO) 14.2 % (3.0-13.0); NEUTROPHILS % (AUTO) 78.1 % (40.0-77.0); PLATELET COUNT (AUTO) 207 K/uL (130-400); RED BLOOD CELL COUNT(AUTO) 2.58 MIL/uL (4.50-6.20); RED CELL DISTRIBUTION WIDTH 15.2 % (11.0-15.5); WHITE BLOOD COUNT (AUTO) 10.4 K/uL (4.8-10.8)
[2020-09-24 13:42] LABS: ALBUMIN 2.2 g/dL (3.5-5.0); CREATININE 1.7 mg/dL (0.5-1.5); POTASSIUM 3.3 mmol/L (3.5-5.1)
[2020-09-24 13:47] LABS: INR 1.24 (0.85-1.15)
[2020-09-24 13:48] LABS: PARTIAL THROMBOPLASTIN TIME 33.3 SEC (26.3-35.5)
[2020-09-24 13:53] LABS: BILIRUBIN,TOTAL 0.4 mg/dL (0.2-1.0); TOTAL PROTEIN, SERUM 6.5 g/dL (6.0-8.3)
[2020-09-24 13:54] LABS: B-TYPE NATRIURETIC PEPTIDE 346 pg/mL (0-100)
[2020-09-24] MEDS ORDERED: IOHEXOL 350 MG/ML 100ML INFUS..BTL IV ONE ×2 (15:31→20:08)
[2020-09-24] MEDS ORDERED: MORPHINE 4 MG SYG ONE (15:34)
[2020-09-24] MEDS ORDERED: POTASSIUM BICARB/CIT AC 25 MEQ TABLET.EFF ONE (15:34)
[2020-09-24] MEDS ORDERED: ONDANSETRON 4MG INJ ONE (15:34)
[2020-09-24] MEDS ORDERED: 0.9%NACL 1000ML 1,000 ML IV ONE (15:36)
[2020-09-24] MEDS ORDERED: MORPHINE 2 MG SYG IV PRN (19:15)
[2020-09-24 19:58] LABS: HEMOGLOBIN A1C 5.8 % (4.0-6.0)
[2020-09-24 20:03] LABS: ALBUMIN 2.2 g/dL (3.5-5.0); BILIRUBIN,TOTAL 0.4 mg/dL (0.2-1.0); CREATININE 1.7 mg/dL (0.5-1.5); POTASSIUM 4.4 mmol/L (3.5-5.1); TOTAL PROTEIN, SERUM 6.7 g/dL (6.0-8.3)
[2020-09-25] VITALS (32 sets, daily range): BP systolic 110–158; BP diastolic 39–83
[2020-09-25] MEDS ORDERED: MORPHINE 2 MG SYG ONE ×2 (00:25→06:13)
[2020-09-25] MEDS ORDERED: HYDROMORPHONE 0.5 MG SYG (0.5MG/0.5ML) ONE (00:31)
[2020-09-25] MEDS ORDERED: METOPROLOL TARTRATE 1 MG/ML 5ML VIAL IV ONE ×2 (00:48→06:36)
[2020-09-25 01:31] LABS: BASOPHILS % (AUTO) 0.3 % (0.0-5.0); EOSINOPHILS % (AUTO) 0.9 % (0.0-8.0); LYMPHOCYTES % (AUTO) 3.8 % (21.0-51.0); MEAN CORPUSCULAR HEMOGLOBIN 31.3 pg (27.0-33.0); MEAN CORPUSCULAR HGB CONC 32.7 g/dL (32.0-36.0); MEAN CORPUSCULAR VOLUME 95.6 fL (79-99); MONOCYTES % (AUTO) 14.5 % (3.0-13.0); NEUTROPHILS % (AUTO) 78.3 % (40.0-77.0); PLATELET COUNT (AUTO) 215 K/uL (130-400); RED BLOOD CELL COUNT(AUTO) 2.72 MIL/uL (4.50-6.20); RED CELL DISTRIBUTION WIDTH 15.5 % (11.0-15.5); WHITE BLOOD COUNT (AUTO) 13.8 K/uL (4.8-10.8)
[2020-09-25 01:44] LABS: ALBUMIN 2.2 g/dL (3.5-5.0); BILIRUBIN,TOTAL 0.4 mg/dL (0.2-1.0); CREATININE 1.8 mg/dL (0.5-1.5); POTASSIUM 3.7 mmol/L (3.5-5.1); TOTAL PROTEIN, SERUM 6.7 g/dL (6.0-8.3)
[2020-09-25] MEDS ORDERED: LABETALOL HCL 200 MG TABLET ONE (05:29)
[2020-09-25 07:17] LABS: ABG BASE EXCESS 1.5 mmol/L (-2.0-3.0); ABG HCO3 30.5 mmol/L (21.0-28.0); ABG OXYGEN SATURATION 99.1 % (95.0-99.0); ABG PCO2 71 mmHg (35-48)
[2020-09-25] MEDS ORDERED: NALOXONE HCL 0.4 MG/1 ML ML ONE (08:12)
[2020-09-25 08:30] LABS: ABG BASE EXCESS -0.6 mmol/L (-2.0-3.0); ABG HCO3 28.8 mmol/L (21.0-28.0); ABG OXYGEN SATURATION 95.4 % (95.0-99.0); ABG PCO2 70 mmHg (35-48)
[2020-09-25] MEDS ORDERED: ACETAMINOPHEN 325 MG TAB PO PRN (09:00)
[2020-09-25] MEDS ORDERED: PHARMACY COMMUNICATION MISC SCH (09:15)
[2020-09-25] MEDS ORDERED: ESMOLOL HCL 2500 MG/NACL 250 ML IV PRN (09:30)
[2020-09-25] MEDS ORDERED: FUROSEMIDE 40MG VIAL IVP SCH (10:00)
[2020-09-25] MEDS: NALOXONE HCL 0.4 MG/1 ML ML IVP SCH (11:00)
[2020-09-25] MEDS: DILTIAZEM 125 MG/25 ML INJ 125 MG in 0.9%NACL 100ML 100 ML IV SCH (14:02)
[2020-09-25] MEDS: DILTIAZEM 60MG TAB PO SCH ×2 (15:08→21:43)
[2020-09-25] MEDS: FUROSEMIDE 20MG VIAL IV SCH (15:08)
[2020-09-25] MEDS: CLOPIDOGREL 75MG TAB PO SCH (15:09)
[2020-09-25] MEDS: ASPIRIN 81MG CHEW TAB PO SCH (15:09)
[2020-09-26] VITALS (12 sets, daily range): BP systolic 123–173; BP diastolic 47–100
[2020-09-26] MEDS: FUROSEMIDE 20MG VIAL IV SCH ×2 (02:12→13:14)
[2020-09-26 03:13] LABS: ABG BASE EXCESS 0.1 mmol/L (-2.0-3.0); ABG HCO3 29.9 mmol/L (21.0-28.0); ABG OXYGEN SATURATION 99.2 % (95.0-99.0); ABG PCO2 73 mmHg (35-48)
[2020-09-26 03:57] LABS: BASOPHILS % (AUTO) 0.3 % (0.0-5.0); EOSINOPHILS % (AUTO) 0.1 % (0.0-8.0); HEMATOCRIT 26.7 % (42-54); LYMPHOCYTES % (AUTO) 4.2 % (21.0-51.0); MEAN CORPUSCULAR HEMOGLOBIN 31.1 pg (27.0-33.0); MEAN CORPUSCULAR HGB CONC 30.7 g/dL (32.0-36.0); MEAN CORPUSCULAR VOLUME 101.1 fL (79-99); MONOCYTES % (AUTO) 12.7 % (3.0-13.0); PLATELET COUNT (AUTO) 231 K/uL (130-400); RED BLOOD CELL COUNT(AUTO) 2.64 MIL/uL (4.50-6.20); RED CELL DISTRIBUTION WIDTH 15.9 % (11.0-15.5); WHITE BLOOD COUNT (AUTO) 17.3 K/uL (4.8-10.8)
[2020-09-26 04:22] LABS: B-TYPE NATRIURETIC PEPTIDE 794 pg/mL (0-100)
[2020-09-26 04:27] LABS: ALBUMIN 2.1 g/dL (3.5-5.0); BILIRUBIN,TOTAL 0.4 mg/dL (0.2-1.0); CREATININE 2.3 mg/dL (0.5-1.5); MAGNESIUM 2.2 mg/dL (1.80-2.40); PHOSPHORUS 6.8 mg/dL (2.5-4.9); POTASSIUM 4.1 mmol/L (3.5-5.1); TOTAL PROTEIN, SERUM 6.7 g/dL (6.0-8.3)
[2020-09-26] MEDS: DILTIAZEM 60MG TAB PO SCH ×3 (06:39→21:51)
[2020-09-26] MEDS: NALOXONE HCL 0.4 MG/1 ML ML IVP SCH (08:15)
[2020-09-26] MEDS: CLOPIDOGREL 75MG TAB PO SCH (09:50)
[2020-09-26] MEDS: ATORVASTATIN 20 MG TABLET PO SCH (09:50)
[2020-09-26] MEDS: ASPIRIN 81MG CHEW TAB PO SCH (09:50)
[2020-09-26] MEDS: ZOSYN 3.375GM+NS 50ML 50 ML IV SCH (13:14)
[2020-09-26] MEDS ORDERED: ACETAZOLAMIDE SODIUM 500 MG VIAL IV SCH (14:00)
[2020-09-26] MEDS ORDERED: LIDOCAINE 5% TOPICAL PATCH TP SCH (15:00)
[2020-09-26] MEDS ORDERED: HYDROMORPHONE 0.5 MG SYG (0.5MG/0.5ML) ONE (15:14)
[2020-09-26] MEDS: HYDROMORPHONE 0.5 MG SYG (0.5MG/0.5ML) IVP PRN (21:44)
[2020-09-27] VITALS (41 sets, daily range): BP systolic 122–183; BP diastolic 40–81
[2020-09-27] MEDS: ZOSYN 3.375GM+NS 50ML 50 ML IV SCH ×3 (00:18→23:03)
[2020-09-27 03:45] LABS: BASOPHILS % (AUTO) 0.3 % (0.0-5.0); EOSINOPHILS % (AUTO) 0.2 % (0.0-8.0); HEMATOCRIT 23.8 % (42-54); LYMPHOCYTES % (AUTO) 3.9 % (21.0-51.0); MEAN CORPUSCULAR HGB CONC 32.4 g/dL (32.0-36.0); MONOCYTES % (AUTO) 8.1 % (3.0-13.0); NEUTROPHILS % (AUTO) 82.7 % (40.0-77.0); PLATELET COUNT (AUTO) 254 K/uL (130-400); RED BLOOD CELL COUNT(AUTO) 2.48 MIL/uL (4.50-6.20); RED CELL DISTRIBUTION WIDTH 15.5 % (11.0-15.5); WHITE BLOOD COUNT (AUTO) 15.5 K/uL (4.8-10.8)
[2020-09-27 03:58] LABS: ALBUMIN 1.9 g/dL (3.5-5.0); BILIRUBIN,TOTAL 0.4 mg/dL (0.2-1.0); CREATININE 2.4 mg/dL (0.5-1.5); POTASSIUM 3.7 mmol/L (3.5-5.1); TOTAL PROTEIN, SERUM 6.4 g/dL (6.0-8.3)
[2020-09-27] MEDS: DILTIAZEM 60MG TAB PO SCH ×3 (05:27→23:03)
[2020-09-27] MEDS ORDERED: DILTIAZEM 50MG VIAL IV ONE (05:44)
[2020-09-27] MEDS: DILTIAZEM 50MG VIAL IV SCH (06:00)
[2020-09-27] MEDS: NALOXONE HCL 0.4 MG/1 ML ML IVP SCH (07:09)
[2020-09-27] MEDS: DILTIAZEM 125 MG/25 ML INJ 125 MG in 0.9%NACL 100ML 100 ML IV SCH (07:18)
[2020-09-27 08:25] LABS: ABG BASE EXCESS 3.8 mmol/L (-2.0-3.0); ABG HCO3 28.5 mmol/L (21.0-28.0); ABG OXYGEN SATURATION 89.5 % (95.0-99.0); ABG PCO2 44 mmHg (35-48)
[2020-09-27] MEDS ORDERED: ADENOSINE 6MG VIAL IV ONE (08:58)
[2020-09-27] MEDS ORDERED: AMIODARONE 200 MG TABLET PO SCH (09:00)
[2020-09-27] MEDS ORDERED: DILTIAZEM 50MG VIAL IV SCH (09:30)
[2020-09-27] MEDS ORDERED: FUROSEMIDE 20MG VIAL IV SCH (09:30)
[2020-09-27] MEDS: ASPIRIN 81MG CHEW TAB PO SCH (09:47)
[2020-09-27] MEDS: PANTOPRAZOLE 40 MG/VIAL IVP SCH ×2 (09:47→21:53)
[2020-09-27] MEDS: CLOPIDOGREL 75MG TAB PO SCH (09:48)
[2020-09-27] MEDS: ATORVASTATIN 20 MG TABLET PO SCH (09:48)
[2020-09-27] MEDS: LIDOCAINE 5% TOPICAL PATCH TP SCH (09:48)
[2020-09-27 14:17] LABS: PROTEIN,URINE RANDOM 94.8 mg/dL (0-11.9)
[2020-09-27 14:18] LABS: APPEARANCE,URINE SL CLOUDY (CLEAR); BILIRUBIN,URINE NEGATIVE (NEGATIVE); COLOR,URINE YELLOW (YELLOW); GLUCOSE, URINE (UA) NEGATIVE (NEGATIVE); KETONES,URINE NEGATIVE (NEGATIVE); LEUKOCYTE ESTERASE ,URINE SMALL (NEGATIVE); NITRATE,URINE NEGATIVE (NEGATIVE); OCCULT BLOOD,URINE LARGE (NEGATIVE); PH,URINE 5.5 (5.0-8.0); PROTEIN,URINE 30 mg/dL (NEGATIVE); UROBILINOGEN,URINE 0.2 mg/dL (0.2-1.0)
[2020-09-27 14:27] LABS: BACTERIA,URINE Moderate /HPF (None Seen); SQUAMOUS EPITHELIAL CELL,UR 0-2 /HPF (0-2)
[2020-09-27] MEDS: HYDROMORPHONE 0.5 MG SYG (0.5MG/0.5ML) IVP PRN (15:33)
[2020-09-28] MEDS: DILTIAZEM 50MG VIAL IV SCH (00:10)
[2020-09-28 04:39] VITALS: BP 160/62
[2020-09-28 05:11] LABS: BASOPHILS % (AUTO) 0.4 % (0.0-5.0); EOSINOPHILS % (AUTO) 0.4 % (0.0-8.0); LYMPHOCYTES % (AUTO) 6.3 % (21.0-51.0); MEAN CORPUSCULAR HEMOGLOBIN 29.4 pg (27.0-33.0); MEAN CORPUSCULAR HGB CONC 31.7 g/dL (32.0-36.0); MEAN CORPUSCULAR VOLUME 92.7 fL (79-99); MONOCYTES % (AUTO) 9.8 % (3.0-13.0); NEUTROPHILS % (AUTO) 78.6 % (40.0-77.0); PLATELET COUNT (AUTO) 285 K/uL (130-400); RED BLOOD CELL COUNT(AUTO) 2.48 MIL/uL (4.50-6.20); RED CELL DISTRIBUTION WIDTH 15.4 % (11.0-15.5); WHITE BLOOD COUNT (AUTO) 15.9 K/uL (4.8-10.8)
[2020-09-28 05:44] LABS: ALBUMIN 1.9 g/dL (3.5-5.0); BILIRUBIN,TOTAL 0.4 mg/dL (0.2-1.0); CREATININE 2.5 mg/dL (0.5-1.5); MAGNESIUM 2.3 mg/dL (1.80-2.40); POTASSIUM 3.2 mmol/L (3.5-5.1); TOTAL PROTEIN, SERUM 6.3 g/dL (6.0-8.3)
[2020-09-28] MEDS: DILTIAZEM 60MG TAB PO SCH ×3 (06:25→18:02)
[2020-09-28 08:00] VITALS: BP 160/56
[2020-09-28] MEDS: NALOXONE HCL 0.4 MG/1 ML ML IVP SCH (08:15)
[2020-09-28] MEDS ORDERED: POTASSIUM CHLORIDE 10% ELIXIR 20 MEQ/15 ML UDCUP PO SCH (09:45)
[2020-09-28] MEDS: HYDROMORPHONE 0.5 MG SYG (0.5MG/0.5ML) IVP PRN (11:20)
[2020-09-28] MEDS: ATORVASTATIN 20 MG TABLET PO SCH (11:22)
[2020-09-28] MEDS: PANTOPRAZOLE 40 MG/VIAL IVP SCH ×2 (11:23→21:21)
[2020-09-28] MEDS: ENOXAPARIN SODIUM 40 MG/0.4 ML SYRINGE SQ SCH (11:24)
[2020-09-28] MEDS: CLOPIDOGREL 75MG TAB PO SCH (11:24)
[2020-09-28] MEDS: LIDOCAINE 5% TOPICAL PATCH TP SCH (11:41)
[2020-09-28 12:00] VITALS: BP 145/56
[2020-09-28] MEDS: ZOSYN 3.375GM+NS 50ML 50 ML IV SCH (12:15)
[2020-09-28] MEDS: ASPIRIN 81MG CHEW TAB PO SCH (13:53)
[2020-09-28] MEDS ORDERED: 0.9%NACL 1000ML 1,000 ML IV SCH (14:00)
[2020-09-28 16:00] VITALS: BP 160/55
[2020-09-29] VITALS: BP 147/61
[2020-09-29] MEDS: DILTIAZEM 60MG TAB PO SCH ×5 (00:10→22:47)
[2020-09-29] MEDS: ZOSYN 3.375GM+NS 50ML 50 ML IV SCH ×3 (00:51→22:47)
[2020-09-29] MEDS: HYDROMORPHONE 0.5 MG SYG (0.5MG/0.5ML) IVP PRN ×2 (02:36→07:36)
[2020-09-29 04:00] VITALS: BP 132/66
[2020-09-29 04:03] LABS: BASOPHILS % (AUTO) 0.4 % (0.0-5.0); EOSINOPHILS % (AUTO) 0.8 % (0.0-8.0); LYMPHOCYTES % (AUTO) 6.7 % (21.0-51.0); MEAN CORPUSCULAR HEMOGLOBIN 30.3 pg (27.0-33.0); MEAN CORPUSCULAR HGB CONC 31.9 g/dL (32.0-36.0); MONOCYTES % (AUTO) 11.1 % (3.0-13.0); NEUTROPHILS % (AUTO) 76.5 % (40.0-77.0); PLATELET COUNT (AUTO) 286 K/uL (130-400); RED BLOOD CELL COUNT(AUTO) 2.21 MIL/uL (4.50-6.20); RED CELL DISTRIBUTION WIDTH 15.5 % (11.0-15.5); WHITE BLOOD COUNT (AUTO) 13.6 K/uL (4.8-10.8)
[2020-09-29 04:05] LABS: CREATININE 2.2 mg/dL (0.5-1.5); MAGNESIUM 2.2 mg/dL (1.80-2.40); POTASSIUM 3.3 mmol/L (3.5-5.1)
[2020-09-29 04:10] LABS: INR 1.43 (0.85-1.15); PROTHROMBIN TIME 14.8 SEC (9.6-11.6)
[2020-09-29 04:12] LABS: % IRON SATURATION 20.1 % (30-44); PARTIAL THROMBOPLASTIN TIME 31.4 SEC (26.3-35.5)
[2020-09-29 04:26] LABS: B-TYPE NATRIURETIC PEPTIDE 124 pg/mL (0-100)
[2020-09-29 07:15] VITALS: BP 150/59
[2020-09-29] MEDS: LIDOCAINE 5% TOPICAL PATCH TP SCH (08:08)
[2020-09-29] MEDS: NALOXONE HCL 0.4 MG/1 ML ML IVP SCH (08:15)
[2020-09-29] MEDS ORDERED: HYDROMORPHONE 0.5 MG SYG (0.5MG/0.5ML) IVP SCH (08:15)
[2020-09-29] MEDS ORDERED: MIDAZOLAM HCL 5 MG/ML 2ML VIAL IV STA (08:38)
[2020-09-29] MEDS: LIDOCAINE 2%-EPI 1:200,000 20 ML VIAL IJ SCH (08:45)
[2020-09-29] MEDS ORDERED: FENTANYL CITRATE PF 50 MCG/1 ML 2ML VIAL IVP ONE (08:45)
[2020-09-29] MEDS ORDERED: FENTANYL CITRATE PF 50 MCG/1 ML 2ML VIAL IVP SCH (09:00)
[2020-09-29] MEDS ORDERED: LIDOCAINE HCL 2% VISCOUS 15 ML UDCUP ONE (09:14)
[2020-09-29] MEDS ORDERED: MIDAZOLAM HCL 1 MG/ML 2ML VIAL ONE (09:15)
[2020-09-29] MEDS ORDERED: MIDAZOLAM HCL 5 MG/ML 2ML VIAL IV SCH (09:15)
[2020-09-29] MEDS: ASPIRIN 81MG CHEW TAB PO SCH (10:00)
[2020-09-29] MEDS: CLOPIDOGREL 75MG TAB PO SCH (10:00)
[2020-09-29] MEDS: PANTOPRAZOLE 40 MG/VIAL IVP SCH ×2 (10:00→20:55)
[2020-09-29] MEDS: ENOXAPARIN SODIUM 40 MG/0.4 ML SYRINGE SQ SCH (10:01)
[2020-09-29 11:30] VITALS: BP 145/57
[2020-09-29] MEDS ORDERED: EPOETIN ALFA-EPBX (NON-ESRD) 10,000 UNIT/ML VIAL SQ SCH (12:15)
[2020-09-29] MEDS: HYDROMORPHONE 2 MG VIAL (2MG/ML) IVP PRN ×2 (14:06→23:05)
[2020-09-29] MEDS ORDERED: 0.9% NACL 250ML 250 ML IV ONE (15:06)
[2020-09-29] MEDS ORDERED: HONEY 1 APPL/ML TUBE TP SCH (15:15)
[2020-09-29 16:00] VITALS: BP 142/51
[2020-09-29 20:35] VITALS: BP 157/49
[2020-09-29] MEDS: BALSAM PERU/CASTOR OIL 60 GM TUBE TP SCH (20:56)
[2020-09-29] MEDS: ATORVASTATIN 20 MG TABLET PO SCH (20:56)
[2020-09-30] VITALS (7 sets, daily range): BP systolic 153–179; BP diastolic 53–87
[2020-09-30 04:05] LABS: BASOPHILS % (AUTO) 0.5 % (0.0-5.0); EOSINOPHILS % (AUTO) 0.8 % (0.0-8.0); HEMATOCRIT 25.6 % (42-54); MEAN CORPUSCULAR HGB CONC 31.6 g/dL (32.0-36.0); MEAN CORPUSCULAR VOLUME 94.8 fL (79-99); MONOCYTES % (AUTO) 8.2 % (3.0-13.0); NEUTROPHILS % (AUTO) 79.2 % (40.0-77.0); PLATELET COUNT (AUTO) 306 K/uL (130-400); RED CELL DISTRIBUTION WIDTH 15.3 % (11.0-15.5); WHITE BLOOD COUNT (AUTO) 15.2 K/uL (4.8-10.8)
[2020-09-30 04:13] LABS: CREATININE 1.9 mg/dL (0.5-1.5); MAGNESIUM 2.1 mg/dL (1.80-2.40); PHOSPHORUS 4.4 mg/dL (2.5-4.9); POTASSIUM 3.7 mmol/L (3.5-5.1)
[2020-09-30 04:24] LABS: B-TYPE NATRIURETIC PEPTIDE 477 pg/mL (0-100)
[2020-09-30] MEDS: DILTIAZEM 60MG TAB PO SCH ×4 (04:54→22:35)
[2020-09-30] MEDS: NALOXONE HCL 0.4 MG/1 ML ML IVP SCH (08:15)
[2020-09-30] MEDS: LIDOCAINE 2%-EPI 1:200,000 20 ML VIAL IJ SCH (08:45)
[2020-09-30] MEDS: TRAMADOL /APAP 37.5MG/325MG TAB PO SCH ×2 (10:00→20:51)
[2020-09-30] MEDS: LIDOCAINE 5% TOPICAL PATCH TP SCH (11:08)
[2020-09-30] MEDS: PANTOPRAZOLE 40 MG/VIAL IVP SCH ×2 (11:10→20:51)
[2020-09-30] MEDS: ENOXAPARIN SODIUM 40 MG/0.4 ML SYRINGE SQ SCH (11:10)
[2020-09-30] MEDS: ASPIRIN 81MG CHEW TAB PO SCH (11:11)
[2020-09-30] MEDS: CLOPIDOGREL 75MG TAB PO SCH (11:11)
[2020-09-30] MEDS: IRON SUCROSE COMPLEX 100 MG in 0.9%NACL 50ML 50 ML IV SCH (11:12)
[2020-09-30] MEDS: LABETALOL HCL 100 MG TABLET PO SCH ×2 (11:16→20:15)
[2020-09-30] MEDS ORDERED: COMPOUND IV MISC 1 EACH IVSOLN MISC PRN (13:00)
[2020-09-30] MEDS: BALSAM PERU/CASTOR OIL 60 GM TUBE TP SCH ×3 (13:09→20:15)
[2020-09-30] MEDS: ZOSYN 3.375GM+NS 50ML 50 ML IV SCH ×2 (13:09→22:35)
[2020-09-30] MEDS: AMPICILLIN 2GM+NS 100ML 100 ML IV SCH ×3 (16:09→22:34)
[2020-09-30] MEDS: ATORVASTATIN 20 MG TABLET PO SCH (20:15)
[2020-10-01 05:15] VITALS: BP 136/67
[2020-10-01] MEDS: DILTIAZEM 60MG TAB PO SCH ×4 (05:35→17:38)
[2020-10-01] MEDS: AMPICILLIN 2GM+NS 100ML 100 ML IV SCH ×3 (05:35→17:38)
[2020-10-01 05:45] LABS: BASOPHILS % (AUTO) 0.3 % (0.0-5.0); EOSINOPHILS % (AUTO) 0.6 % (0.0-8.0); HEMATOCRIT 22.9 % (42-54); LYMPHOCYTES % (AUTO) 6.7 % (21.0-51.0); MEAN CORPUSCULAR HEMOGLOBIN 30.6 pg (27.0-33.0); MEAN CORPUSCULAR HGB CONC 33.2 g/dL (32.0-36.0); MEAN CORPUSCULAR VOLUME 92.3 fL (79-99); MONOCYTES % (AUTO) 8.4 % (3.0-13.0); NEUTROPHILS % (AUTO) 79.9 % (40.0-77.0); PLATELET COUNT (AUTO) 345 K/uL (130-400); RED BLOOD CELL COUNT(AUTO) 2.48 MIL/uL (4.50-6.20); RED CELL DISTRIBUTION WIDTH 14.9 % (11.0-15.5)
[2020-10-01 06:10] LABS: CREATININE 1.6 mg/dL (0.5-1.5); MAGNESIUM 1.9 mg/dL (1.80-2.40); PHOSPHORUS 2.6 mg/dL (2.5-4.9); POTASSIUM 3.4 mmol/L (3.5-5.1)
[2020-10-01 08:00] VITALS: BP 185/76
[2020-10-01] MEDS: ASPIRIN 81MG CHEW TAB PO SCH (08:12)
[2020-10-01] MEDS: CLOPIDOGREL 75MG TAB PO SCH (08:12)
[2020-10-01] MEDS: LIDOCAINE 5% TOPICAL PATCH TP SCH (08:12)
[2020-10-01] MEDS: LABETALOL HCL 100 MG TABLET PO SCH ×2 (08:13→20:59)
[2020-10-01] MEDS: ENOXAPARIN SODIUM 40 MG/0.4 ML SYRINGE SQ SCH (08:14)
[2020-10-01] MEDS: BALSAM PERU/CASTOR OIL 60 GM TUBE TP SCH ×3 (08:14→21:04)
[2020-10-01] MEDS: PANTOPRAZOLE 40 MG/VIAL IVP SCH ×2 (08:33→20:50)
[2020-10-01] MEDS: IRON SUCROSE COMPLEX 100 MG in 0.9%NACL 50ML 50 ML IV SCH (08:34)
[2020-10-01] MEDS: TRAMADOL /APAP 37.5MG/325MG TAB PO SCH ×2 (09:34→21:00)
[2020-10-01] MEDS: ZOSYN 3.375GM+NS 50ML 50 ML IV SCH (11:59)
[2020-10-01 12:00] VITALS: BP 164/74
[2020-10-01] MEDS ORDERED: PHARMACY COMMUNICATION MISC SCH (14:45)
[2020-10-01 16:00] VITALS: BP 152/77
[2020-10-01 20:00] VITALS: BP 158/93
[2020-10-01] MEDS: ATORVASTATIN 20 MG TABLET PO SCH (20:59)
[2020-10-01] MEDS ORDERED: EPOETIN ALFA-EPBX (ESRD) 10,000 UNIT/ML VIAL SQ SCH (21:00)
[2020-10-02] VITALS: BP 119/65
[2020-10-02] MEDS: DILTIAZEM 60MG TAB PO SCH ×4 (00:37→17:26)
[2020-10-02] MEDS: AMPICILLIN 2GM+NS 100ML 100 ML IV SCH ×3 (00:37→11:50)
[2020-10-02] MEDS: ZOSYN 3.375GM+NS 50ML 50 ML IV SCH ×2 (00:38→12:19)
[2020-10-02 04:00] VITALS: BP 157/65
[2020-10-02 06:01] LABS: HEMATOCRIT 24.1 % (42-54); MEAN CORPUSCULAR HGB CONC 31.5 g/dL (32.0-36.0); MEAN CORPUSCULAR VOLUME 95.3 fL (79-99); NUCLEATED RED BLOOD CELLS 0.2 % (0.0-0.19); RED BLOOD CELL COUNT(AUTO) 2.53 MIL/uL (4.50-6.20); RED CELL DISTRIBUTION WIDTH 15.6 % (11.0-15.5); WHITE BLOOD COUNT (AUTO) 13.3 K/uL (4.8-10.8)
[2020-10-02 06:16] LABS: CREATININE 1.7 mg/dL (0.5-1.5); POTASSIUM 3.5 mmol/L (3.5-5.1)
[2020-10-02 08:00] VITALS: BP 156/62
[2020-10-02] MEDS: PANTOPRAZOLE 40 MG/VIAL IVP SCH (08:11)
[2020-10-02] MEDS: ENOXAPARIN SODIUM 40 MG/0.4 ML SYRINGE SQ SCH (08:11)
[2020-10-02] MEDS: TRAMADOL /APAP 37.5MG/325MG TAB PO SCH (08:11)
[2020-10-02] MEDS: ASPIRIN 81MG CHEW TAB PO SCH (08:12)
[2020-10-02] MEDS: CLOPIDOGREL 75MG TAB PO SCH (08:12)
[2020-10-02] MEDS: LABETALOL HCL 100 MG TABLET PO SCH (08:12)
[2020-10-02] MEDS: BALSAM PERU/CASTOR OIL 60 GM TUBE TP SCH ×2 (08:13→13:26)
[2020-10-02] MEDS: LIDOCAINE 5% TOPICAL PATCH TP SCH (08:13)
[2020-10-02] MEDS: IRON SUCROSE COMPLEX 100 MG in 0.9%NACL 50ML 50 ML IV SCH (08:13)
[2020-10-02 11:15] VITALS: BP 161/50
[2020-10-02] MEDS: WATER IV SCH ×2 (12:00→17:25)
[2020-10-02] MEDS: AMPICILLIN IV SCH ×2 (12:00→17:25)
[2020-10-02] MEDS: DEXTROSE 5% IV SCH ×2 (12:00→17:25)
[2020-10-02] MEDS ORDERED: DEXTROSE 5%-WATER 1,000 ML IV SCH (12:30)
[2020-10-02] MEDS ORDERED: LEVOFLOXACIN 500 MG/D5W 100 ML 100 ML IV SCH (14:00)
[2020-10-02 16:00] VITALS: BP 153/91
== END 2020-10-02 18:56 | DRG 871 ==
LOC: EDH 12:57 → EDHIP 19:08 → 2CH 09-25 09:35 → 4CH 09-28 00:25
PROVIDERS: ADMIT Family Medicine; ATTEND Family Medicine
PROC: 5A09357 Assistance with Respiratory Ventilation, Less than 24 Consecutive Hours, Continuous Positive Airway Pressure (ICD-10-PCS; principal; 2020-09-28)
PROC: 5A09357 Assistance with Respiratory Ventilation, Less than 24 Consecutive Hours, Continuous Positive Airway Pressure (ICD-10-PCS; 2020-09-29)
PROC: 30233N1 Transfusion of Nonautologous Red Blood Cells into Peripheral Vein, Percutaneous Approach (ICD-10-PCS; 2020-09-29)
DX: A41.59 Other Gram-negative sepsis (principal); G93.41 Metabolic encephalopathy; I50.33 Acute on chronic diastolic (congestive) heart failure; J96.01 Acute respiratory failure with hypoxia; J96.02 Acute respiratory failure with hypercapnia; I13.0 Hypertensive heart and chronic kidney disease with heart failure and stage 1 through stage 4 chronic kidney disease, or unspecified chronic kidney disease; I47.1 Supraventricular tachycardia; N17.9 Acute kidney failure, unspecified; Z68.41 Body mass index [BMI] 40.0-44.9, adult; E66.2 Morbid (severe) obesity with alveolar hypoventilation; I67.82 Cerebral ischemia; E87.0 Hyperosmolality and hypernatremia; I42.9 Cardiomyopathy, unspecified; G82.20 Paraplegia, unspecified; D62 Acute posthemorrhagic anemia; E86.0 Dehydration; I35.0 Nonrheumatic aortic (valve) stenosis; M45.2 Ankylosing spondylitis of cervical region; I25.10 Atherosclerotic heart disease of native coronary artery without angina pectoris; N18.30 Chronic kidney disease, stage 3 unspecified; I48.91 Unspecified atrial fibrillation; Z96.611 Presence of right artificial shoulder joint; E87.6 Hypokalemia; E78.5 Hyperlipidemia, unspecified; G89.29 Other chronic pain; R53.81 Other malaise; L98.429 Non-pressure chronic ulcer of back with unspecified severity; K74.60 Unspecified cirrhosis of liver; H91.90 Unspecified hearing loss, unspecified ear; D63.1 Anemia in chronic kidney disease; E11.22 Type 2 diabetes mellitus with diabetic chronic kidney disease; H05.20 Unspecified exophthalmos; I87.2 Venous insufficiency (chronic) (peripheral); M54.18 Radiculopathy, sacral and sacrococcygeal region; N28.1 Cyst of kidney, acquired; N99.81 Other intraoperative complications of genitourinary system; Y84.8 Other medical procedures as the cause of abnormal reaction of the patient, or of later complication, without mention of misadventure at the time of the procedure; Y92.89 Other specified places as the place of occurrence of the external cause; Z20.822 Contact with and (suspected) exposure to COVID-19; Z68.39 Body mass index [BMI] 39.0-39.9, adult; Z99.3 Dependence on wheelchair; Z95.2 Presence of prosthetic heart valve; Z74.01 Bed confinement status
CPT/HCPCS: 36415; 36430; 36600; 70450; 71045; 71275; 74174; 76770; 80048; 80053; 80061; 81001; 82270; 82435; 82436; 82550; 82570; 82728; 82803; 82947; 82948; 83036; 83540; 83550; 83605; 83735; 83880; 83935; 84100; 84132; 84133; 84145; 84156; 84295; 84300; 84439; 84484; 85018; 85025; 85027; 85610; 85730; 86140; 86850; 86900; 86901; 86923; 87040; 87077; 87088; 87186; 87426; 92526; 92610; 93005; 93306; 93356; 93970; 94660; 97039; 99291; C9113; G0378; J0153; J0290; J1120; J1170; J1650; J1756; J1940; J1956; J2250; J2270; J2310; J2405; J2543; J3010; J3490; J7030; J7050; J7060; J7070; P9016; Q9967; U0003